=== PATIENT | female | born 1985 | race Caucasian/White ===

== ENCOUNTER 2018-11-20 13:33 | Emergency (ER) | payer OTHER ==
[2018-11-20 13:41] VITALS: BP 107/75
== END 2018-11-20 14:04 | disposition left against medical advice (07) ==
LOC: EDSTATUS 13:33
DX: Z53.21 Procedure and treatment not carried out due to patient leaving prior to being seen by health care provider (principal)

== ENCOUNTER 2019-02-09 21:27 | Observation (INO) | payer OTHER | END 2019-02-09 23:00 | disposition home or self-care (01) | LOC: FLD 21:27 | PROVIDERS: ADMIT Advanced Practice Midwife; ATTEND Advanced Practice Midwife | DX: O47.03 False labor before 37 completed weeks of gestation, third trimester (principal); Z3A.38 38 weeks gestation of pregnancy ==

== ENCOUNTER 2019-02-10 11:00 | Inpatient (IN) | payer OTHER ==
[2019-02-10] MEDS ORDERED: MISOPROSTOL 200 MCG TAB PR PRN (11:57)
[2019-02-10] MEDS ORDERED: EPSOM SALT 454 GM TP PRN (11:57)
[2019-02-10] MEDS ORDERED: LIDOCAINE 1% 300 MG/30 ML SDV SC PRN (11:57)
[2019-02-10] MEDS ORDERED: IBUPROFEN 600 MG TAB PO PRN (11:57)
[2019-02-10] MEDS ORDERED: OXYTOCIN/RINGERS LACTATE 1,000 ML IV PRN (11:57)
[2019-02-10] MEDS ORDERED: OLIVE OIL 118 ML BTL MISC PRN (11:57)
[2019-02-10] MEDS ORDERED: LR 1,000 ML IV PRN (11:57)
[2019-02-10] MEDS ORDERED: LIDOCAINE 1% 300 MG/30 ML SDV ONE (12:04)
[2019-02-10] MEDS ORDERED: OLIVE OIL 118 ML BTL MISC ONE (12:05)
[2019-02-10] MEDS ORDERED: OXYTOCIN 10 UNIT/ML VIAL ONE (12:05)
[2019-02-10] MEDS ORDERED: MISOPROSTOL 200 MCG TAB ONE (12:05)
[2019-02-10] MEDS ORDERED: AMMONIA AROMATIC 1 EACH AMP IH ONE (12:05)
[2019-02-10] MEDS ORDERED: TERBUTALINE SULFATE 1 MG/ML VIAL ONE (12:05)
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
[2019-02-10 15:28] LABS: PLATELET COUNT 273 10^3/uL (150-400)
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
[2019-02-10] MEDS ORDERED: fentaNYL 2MCG/ML/BUP 0.1% RTU 100 ML BAG EP ONE (17:10)
[2019-02-10] MEDS ORDERED: PHENYLEPHRINE HCL 100 MCG/ML SYR ONE (17:11)
[2019-02-10] MEDS ORDERED: METOCLOPRAMIDE 10 MG/2 ML VIAL IVP PRN (17:53)
[2019-02-10] MEDS ORDERED: NALOXONE HCL 0.4 MG/ML INJ IVP PRN (17:53)
[2019-02-10] MEDS ORDERED: ONDANSETRON 4 MG/2 ML VIAL IVP PRN (17:53)
--- NOTE | 2019-02-10 17:54 | PREANESOB ---
Obstetric Pre-Anesthesia Info - General Info Proposed Procedure: Labor Epidural : 2 Para: 0 CHRIS: 02/17/19 Gestational Age: 39 week(s) and 0 day(s) - Info Status: Full Term Anesthesia Allergies/Adverse Reactions: Allergy/AdvReac Type Severity Reaction Status Date / Time No Known Allergies Allergy Unverified 11/20/18 13:15 Home Medications: Medication Instructions Recorded NK [No Known Home Meds] 11/20/18 Visit Medications: Generic Name Dose Route Start Last Admin Trade Name Freq PRN Reason Stop Dose Admin Lactated Ringer's 1,000 mls @ 0 mls/hr 02/10/19 11:57 Lr IV 02/11/19 11:56 PRN PRN SEE PROTOCOL CONDITIONS Protocol Per Protocol Oxytocin/Lactated Ringer's 1,000 mls @ 125 mls/hr 02/10/19 11:57 Pitocin 20 Units/Lr (Premix) IV PRN PRN Post bleeding Lactated Ringer's 500 mls @ 0 mls/hr 02/10/19 18:00 Lr IV 08/09/19 17:59 CONT DEONTE As Directed Ibuprofen 600 mg 02/10/19 11:57 Motrin PO ONCE PRN post , pain Lidocaine HCl 300 mg 02/10/19 11:57 Lidocaine Hcl 1% SC 08/09/19 11:56 ONCE PRN episiotomy Magnesium Sulfate 454 gm 02/10/19 11:57 Epsom Salt TP 08/09/19 11:56 Q1H PRN perineal discomfort Misoprostol 800 - 1,000 mcg 02/10/19 11:57 Cytotec HI ONCE PRN Vaginal Atony/Bleeding Baldwin Oil 118 ml 02/10/19 11:57 Sweet Oil MISC 08/09/19 11:56 ONCE PRN perineal massage Discontinued Medications Generic Name Dose Route Start Last Admin Trade Name Freq PRN Reason Stop Dose Admin Ammonia (Aromatic Spirit) Confirm 02/10/19 12:05 Ammonia Aromatic Administered 02/10/19 12:06 Dose 1 each IH .STK-MED ONE Fentanyl/Bupivacaine HCl Confirm 02/10/19 17:10 Fentanyl/Bupivacaine/Ns 2 Mcg/Ml 0.1% (Premix Administered 02/10/19 17:11 Dose 100 ml EP .STK-MED ONE Lidocaine HCl Confirm 02/10/19 12:04 Lidocaine Hcl 1% Administered 02/10/19 12:05 Dose 300 mg .ROUTE .STK-MED ONE Misoprostol Confirm 02/10/19 12:05 Cytotec Administered 02/10/19 12:06 Dose 1,000 mcg .ROUTE .STK-MED ONE Baldwin Oil Confirm 02/10/19 12:05 Sweet Oil Administered 02/10/19 12:06 Dose 118 ml MISC .STK-MED ONE Oxytocin Confirm 02/10/19 12:05 Pitocin Administered 02/10/19 12:06 Dose 40 unit .ROUTE .STK-MED ONE Phenylephrine HCl Confirm 02/10/19 17:11 Neosynephrine Administered 02/10/19 17:12 Dose 1,000 mcg .ROUTE .STK-MED ONE Terbutaline Sulfate Confirm 02/10/19 12:05 Brethine Administered 02/10/19 12:06 Dose 1 mg .ROUTE .STK-MED ONE - Vital Signs Height/Weight (Nursing): Height 167.64 cm Weight 80.739 kg - Focused Exam Neck exam: FROM Mallampati Score: Class 2 Mouth exam: normal dental/mouth exam Pulmonary: clear to auscultation Cardiovascular: regular rate and rhythym Labs: 02/10/19 15:15 Patient ABO/Rh A POSITIVE 02/10/19 15:15 - Plan Consent Signed and on Chart: Yes
[2019-02-10] MEDS ORDERED: LR 500 ML IV SCH (18:00)
[2019-02-10] MEDS ORDERED: fentaNYL 2MCG/ML/BUP 0.1% RTU 100 ML EP SCH (18:00)
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
[2019-02-11] MEDS: ACETAMINOPHEN 325 MG TAB PO SCH ×3 (02:56→17:38)
[2019-02-11] MEDS ORDERED: HYDROCORTISONE 0.5% CREAM TP PRN (03:38)
[2019-02-11] MEDS ORDERED: SIMETHICONE 80 MG TAB CHEW PO PRN (03:38)
[2019-02-11] MEDS ORDERED: DOCUSATE SODIUM 100 MG CAP PO PRN (03:38)
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
--- NOTE | 2019-02-11 07:48 | POSTANESTH ---
Post Anesthetic Evaluation Cardiovascular Status: Normal, Stable Respiratory Status: Normal, Stable Level of Consciousness/Mental Status: Can Participate in Eval, Alert and Oriented Pain Control: Adequate, Prn Tx Ordered Nausea/Vomiting Control: Adequate, Prn Tx Ordered Complications Possibly Related to Anesthesia: None Noted (Placenta Delivery Time 02/11/19 @ 03:11 = Epidural End Time)
[2019-02-11] MEDS: IBUPROFEN 600 MG TAB PO PRN (17:38)
[2019-02-12] MEDS: IBUPROFEN 600 MG TAB PO PRN ×2 (01:32→12:27)
[2019-02-12] MEDS ORDERED: IBUPROFEN 600 MG TAB PO PRN (10:24)
[2019-02-12] MEDS ORDERED: HYDROCODONE/APAP 5/325 TAB PO PRN (10:24)
[2019-02-12] MEDS ORDERED: ACETAMINOPHEN 325 MG TAB PO PRN (10:24)
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
[2019-02-12] MEDS: ACETAMINOPHEN 325 MG TAB PO SCH ×3 (13:11→23:27)
[2019-02-13 09:09] VITALS: BP 129/90
--- NOTE | 2019-02-13 09:44 | OBGCSDC ---
General Delivery Information - General Info : 2 Para: 1 Abortions: 0 Type: Vaginal L&D Analgesia/Anesthesia Type: Epidural, Nitrous Admission Date: 02/10/19 Labs: Patient ABO/Rh A POSITIVE 02/10/19 15:15 Hct 40.7 % (38.0-47.0) 02/10/19 15:15 - Hospital Course Intrapartum: Pt was resting, denies any pain. She reports intermittent pressure. she was able to sleep for couple of hours. : 02/12/19 13:42 Patient is doing well this morning. Reports lochia to be light, pain controlled with oral medication, tolerating regular diet and voiding. is going well. 02/13/19 09:43 S) Pt doing well, reports min pain and bleeding. she is ambulating and voiding without difficulty. She is . She desires discharge home today. O) VSS, afebrile constitutional: WNWF, A&Ox3 HEENT: normocephalic, atraumatic, supple Heart: RRR, No murmur Chest: CTA-B Abdomen: Soft, nontender Uterus: Firm at U-2 Lochia: Minimal rubra Perineum: Intact, healing well Extremities: Trace edema, and negative Pee's sign Neuro: Grossly normal A) 34 year-old P1 S/P PPD#2 P) Discharge home today Continue Pelvic rest x6wks Discussed danger signs (infection, preeclampsia, depression, heavy bleeding, etc) RTO in 2/4/6 weeks Vaginal - Delivery Provider Delivery Physician/CNM: Prerna Washington - Diagnosis Labor: Spontaneous Rupture of Membranes Type: Artificial Amniotic Fluid Color: Clear Laceration: Other (Specify) (left labial laceration) Repair: 4-0, Chromic Delivery Events: None - Procedures Non-surgical Procedures: IUPC - Delivery Non-surgical Procedures: IUPC EBL: 200 [place] Data CHRIS: 02/17/19 Gestational Age: 39 week(s) and 3 day(s) Lyman Delivery Date: 02/11/19 Delivery Time: 03:03 Sex of Infant: Female Weight (gm): 3220 g Score (1 Min): 8 Score (5 Min): 9
== END 2019-02-13 12:38 | disposition home or self-care (01) | DRG 807 ==
LOC: FLD 11:00 → OBSVTOIN 11:58 → FOB 02-11 05:32
PROVIDERS: ADMIT Advanced Practice Midwife; ATTEND Advanced Practice Midwife
DX: O70.0 First degree perineal laceration during delivery (principal); Z3A.39 39 weeks gestation of pregnancy; Z37.0 Single live birth
CPT/HCPCS: J2370; J2590; J3105